=== PATIENT | male | born 2000 | race Caucasian/White ===

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

== ENCOUNTER 2021-01-10 14:08 | Outpatient (REF) | payer OTHER, SELFPAY ==
[2021-01-10 14:56] LABS: COVID-19 Test Negative (Negative)
== END 2021-01-10 14:09 | disposition home or self-care (01) ==
LOC: HO.LAB 14:08
PROVIDERS: Visit Provider Internal Medicine
DX: Z20.822 Contact with and (suspected) exposure to COVID-19 (principal)
CPT/HCPCS: 36415; 87635; C9803

== ENCOUNTER 2021-02-03 06:28 | Emergency (ER) | payer OTHER, SELFPAY ==
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
[2021-02-03 06:32] VITALS: BP 129/59; RESP 18; TEMP 36.1; O2SAT 99; BMI 20.3
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
[2021-02-03] MEDS: Acetaminophen 325 MG TABLET 650 MG PO (07:38)
[2021-02-03 08:28] VITALS: BP 123/61; PULSE 66; RESP 18; O2SAT 97
== END 2021-02-03 08:34 | disposition home or self-care (01) ==
PROVIDERS: Emergency Provider Emergency Medicine
DX: S13.9XXA Sprain of joints and ligaments of unspecified parts of neck, initial encounter (principal); S30.0XXA Contusion of lower back and pelvis, initial encounter; V43.53XA Car driver injured in collision with pick-up truck in traffic accident, initial encounter; Y93.9 Activity, unspecified; Y92.410 Unspecified street and highway as the place of occurrence of the external cause; Y99.9 Unspecified external cause status
CPT/HCPCS: 72100; 72125; 99284

== ENCOUNTER 2021-02-11 10:51 | Outpatient (REF) | payer OTHER, SELFPAY ==
[2021-02-11 12:37] LABS: COVID-19 Test Negative (Negative); IDNOW Serial# 16C4AD1C
== END 2021-02-11 10:52 | disposition home or self-care (01) ==
LOC: HO.LAB 10:51
PROVIDERS: Visit Provider Internal Medicine
DX: Z20.822 Contact with and (suspected) exposure to COVID-19 (principal)
CPT/HCPCS: 36415; 87635; C9803

== ENCOUNTER 2021-03-22 13:26 | Outpatient (REF) | payer OTHER, SELFPAY ==
[2021-03-22 14:17] LABS: COVID-19 Test Negative (Negative)
== END 2021-03-22 13:27 | disposition home or self-care (01) ==
LOC: HO.LAB 13:26
PROVIDERS: Visit Provider Internal Medicine
DX: Z20.822 Contact with and (suspected) exposure to COVID-19 (principal)
CPT/HCPCS: 87635; C9803

== ENCOUNTER 2021-06-20 18:26 | Outpatient (REF) | payer OTHER, SELFPAY ==
[2021-06-20 19:16] LABS: Influenza A PCR NEGATIVE (Negative); Influenza B PCR NEGATIVE (Negative); Resp Syncy Virus RNA Qual PCR NEGATIVE (Negative); SARS COV2 PCR INHOUSE NEGATIVE (Negative)
== END 2021-06-20 18:27 | disposition home or self-care (01) ==
LOC: HO.LNP 18:26
PROVIDERS: Visit Provider Hospitalist
DX: Z20.822 Contact with and (suspected) exposure to COVID-19 (principal); R09.89 Other specified symptoms and signs involving the circulatory and respiratory systems
CPT/HCPCS: 0241U